=== PATIENT | female | born 1990 | race African-American/Black ===

== ENCOUNTER 2021-08-02 00:32 | Outpatient (CLI) | payer OTHER | END 2021-08-02 09:52 | disposition home or self-care (01) | LOC: OBS/DEL 00:32 | PROVIDERS: ATTEND Specialist | DX: O26.892 Other specified pregnancy related conditions, second trimester (principal); B96.0 Mycoplasma pneumoniae [M. pneumoniae] as the cause of diseases classified elsewhere; Z3A.26 26 weeks gestation of pregnancy ==

== ENCOUNTER 2021-10-25 13:45 | Inpatient (IN) | payer OTHER ==
[~2021-10-25] VITALS: Ht 162.6 cm; Wt 3.6 kg
[2021-11-02] MEDS ORDERED: VALACYCLOVIR500 MG (06:46)
[2021-11-02] MEDS ORDERED: PRENATAL DHA200 MG (06:47)
[2021-11-05] MEDS ORDERED: SIMETHICONE80 MG PO (13:43)
[2021-11-05] MEDS ORDERED: COLACE100 MG PO (13:43)
[2021-11-05] MEDS ORDERED: OXYC1TAB9 PO (13:43)
== END 2021-11-05 16:22 | disposition home or self-care (01) | DRG 788 ==
LOC: LDR 11-02 05:37 → SURG-SUITE 11-02 05:37 → OB/GYN 11-08 13:45
PROVIDERS: ADMIT Specialist; ATTEND Specialist
PROC: 4A1HXCZ Monitoring of Products of Conception, Cardiac Rate, External Approach (ICD-10-PCS; 2021-11-02)
PROC: 10D00Z1 Extraction of Products of Conception, Low, Open Approach (ICD-10-PCS; principal; 2021-11-02 20:00)
DX: O33.8 Maternal care for disproportion of other origin (principal); Z3A.39 39 weeks gestation of pregnancy; Z37.0 Single live birth; Z20.822 Contact with and (suspected) exposure to COVID-19